=== PATIENT | male | born 1990 | race Caucasian/White ===

== ENCOUNTER 2019-01-20 19:53 | Emergency (ER) | payer OTHER ==
[~2019-01-20] VITALS: Ht 1955.8 cm; Wt 119.3 kg
--- OUTSIDE RECORDS SUMMARY | ~2019-01-20 | XMS | Clinical Summary ---
Demographics + + + | Address | [address] | | | [place] [address] | + + + | Home Phone | | + + + | Preferred Language | Unknown | + + + | Marital Status | | + + + | Moravian Affiliation | Unknown | + + + | Race | Unknown | + + + | Ethnic Group | Unknown | + + + Author + + + | Author | [facility] | + + + | Organization | [facility] | + + + | Address | Unknown | + + + | Phone | Unavailable | + + + Support + + +---------+ + | Name | Relationship | Address | Phone | + + +---------+ + | Yolette Henley | ECON | Unknown | | + + +---------+ + Care Team Providers + +------+ + | Care Dump Operator Name | Role | Phone | + +------+ + PP | Unavailable | + +------+ + Allergies + + + + + + | Active Allergy | Reactions | Severity | Noted | Comments | | | | | Date | | + + + + + + | Amoxicillin | Hives | High | 03/21/20 | | | | | | 17 | | + + + + + + | Diphenhydramine | Anxiety | Low | 03/21/20 | Nightmares | | | | | 17 | | + + + + + + | Duloxetine | Hives | High | 03/21/20 | | | | | | 17 | | + + + + + + Current Medications + + +-------+---------+------+------+-------+ | Prescription | Sig. | Disp. | Refills | Star | End | Statu | | | | | | t | Date | s | | | | | | Date | | | + + +-------+---------+------+------+-------+ | omeprazole | Take 20 mg by mouth | | | | | Activ | | (PRILOSEC) 20 MG | 2 (two) times daily | | | | | e | | capsule | before meals. | | | | | | + + +-------+---------+------+------+-------+ | ondansetron | Take 4 mg by mouth 3 | | | | | Activ | | (ZOFRAN) 4 MG tablet | (three) times daily | | | | | e | | | as needed for | | | | | | | | Nausea. | | | | | | + + +-------+---------+------+------+-------+ | PARoxetine (PAXIL) | Take 40 mg by mouth | | | | | Activ | | 40 MG tablet | every morning. | | | | | e | + + +-------+---------+------+------+-------+ | | Take 1 tablet by | | | | | Activ | | oxyCODONE-acetaminop | mouth every 6 (six) | | | | | e | | hen (PERCOCET) | hours as needed for | | | | | | | 10-325 MG per tablet | Pain. | | | | | | + + +-------+---------+------+------+-------+ | clonazePAM | Take 1 tablet by | | | 07/0 | | Activ | | (KLONOPIN) 1 MG | mouth daily as | | | 5/20 | | e | | tablet | needed. 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 | + + + | History of back surgery | 03/21/2017 | + + + | Obesity (BMI 35.0-39.9 without comorbidity) | 03/21/2017 | + + + Family History + + +------+ + | Medical History | Relation | Name | Comments | + + +------+ + | Diabetes type II | Brother | | | + + +------+ + | Migraines | Father | | | + + +------+ + | Aneurysm | Maternal | | | | | Grandfath | | | | | er | | | + + +------+ + | Aneurysm | Mother | | | + + +------+ + | Migraines | Mother | | | + + +------+ + | Mult sclerosis | Sister | | | + + +------+ + + +------+ + + | Relation | Name | Status | Comments | + +------+ + + | Brother | | Alive | | + +------+ + + | Father | | Alive | | + +------+ + + | Maternal Grandfather | | | | + +------+ + + | Mother | | Alive | | + +------+ + + | Sister | | | | + +------+ + + Social History + +-------+ +--------+------+ | Tobacco Use | Types | Packs/Day | Years | Date | | | | | Used | | + +-------+ +--------+------+ | Never Smoker | | | | | + +-------+ +--------+------+ + +---+---+---+ | Smokeless Tobacco: | | | | | Never Used | | | | + +---+---+---+ + + +---------+ + | Alcohol Use | Drinks/We | oz/Week | Comments | | | ek | | | + + +---------+ + | No | | | | + + +---------+ + + + + | Sex Assigned at | Date Recorded | | | | + + + | Not on file | | + + + Last Filed Vital Signs + + + + | Vital Sign | Reading | Time Taken | + + + + | Blood Pressure | 122/60 | 03/21/2017 9:52 AM PDT | + + + + | Pulse | 100 | 03/21/2017 9:52 AM PDT | + + + + | Temperature | 36.8 C (98.3 F) | 03/21/2017 9:52 AM PDT | + + + + | Respiratory Rate | 20 | 03/21/2017 9:52 AM PDT | + + + + | Oxygen Saturation | 98% | 03/21/2017 9:52 AM PDT | + + + + | Inhaled Oxygen | - | - | | Concentration | | | + + + + | Weight | 115.9 kg (255 lb 8 | 03/21/2017 9:52 AM PDT | | | oz) | | + + + + | Height | 177.8 cm (5' 10") | 03/21/2017 9:52 AM PDT | + + + + | Body Mass Index | 36.66 | 03/21/2017 9:52 AM PDT | + + + + Plan of Treatment + + + + + | Health Maintenance | Due Date | Last Done | Comments | + + + + + | Vaccine: | | | | | Dtap/Tdap/Td (1 - | 1 | | | | Tdap) | | | | + + + + + | Vaccine: Influenza | | | | | (Season Ended) | 9 | | | + + + + + Results Not on filefrom Last 3 Months Insurance + +--------+ +------+-------+---------+ | Payer | Benefi | Subscriber | Type | Phone | Address | | | t Plan | ID | | | | | | / | | | | | | | Group | | | | | + +--------+ +------+-------+---------+ | [employer] | [employer] | [id number] | | | | | | HEALTH | | | | | | | PLAN | | | | | + +--------+ +------+-------+---------+ + +--------+ +--------+ + + | Guarantor Name | Accoun | Relation to | Date | Phone | Billing Address | | | t Type | Patient | of | | | | | | | | | | + +--------+ +--------+ + + | IRMA HENLEY | Person | Self [birth year] Home: | [id number] | | | [place] | | 1989 | [phone] | [place] [address] | | | [place] | | | [phone] | | + +--------+ +--------+ + +
--- OUTSIDE RECORDS SUMMARY | ~2019-01-20 | XMS | Clinical Summary ---
Demographics + + + | Address | [address] | | | [place] [address] | + + + | Home Phone | | + + + | Preferred Language | Unknown | + + + | Marital Status | | + + + | Tenriism Affiliation | Unknown | + + + | Race | Unknown | + + + | Ethnic Group | Unknown | + + + Author + + + | Author | [facility] | + + + | Organization | [facility] | + + + | Address | Unknown | + + + | Phone | Unavailable | + + + Support + + +---------+ + | Name | Relationship | Address | Phone | + + +---------+ + | Yolette Henley | ECON | Unknown | | + + +---------+ + Care Team Providers + +------+ + | Care Sawing And Assembly Supervisor Name | Role | Phone | + [...] | [employer] | [employer] | [id number] | | | | | | HEALTH [...] | Self | [birth year] | Home: | [id number] | | | [place] | | 1989 | [phone] | [place] [address] | | | [place] | | | [phone] | | + +--------+ +--------+ + +
[~2019-01-20 19:53] MED LIST: ACID REDUCER 1150 MG PO; BUSPIRONE HCL15 MG PO; MINIPRESS1 MG PO; VALIUM10 MG PO; ZOFRAN4 MG PO
[2019-01-20] MEDS ORDERED: ANTIBIOTIC (21:06)
== END 2019-01-20 22:56 | disposition home or self-care (01) ==
LOC: ED 19:53
DX: J32.9 Chronic sinusitis, unspecified (principal); J40 Bronchitis, not specified as acute or chronic; Z88.0 Allergy status to penicillin; Z88.8 Allergy status to other drugs, medicaments and biological substances; Z79.899 Other long term (current) drug therapy
CPT/HCPCS: 71046; 80053; 81001; 85025; 96361; 96374; 99284-25; J2405; J7030; J7040